=== PATIENT | female | born 1935 | race Caucasian/White ===

== ENCOUNTER 2018-02-13 14:00 | Inpatient (IN) ==
[2018-02-13 15:03] LABS: Appearance,Urine CLEAR; Bacteria,Urine FEW /hpf (0); Bilirubin,Urine NEG (NEG); Color,Urine YELLOW; Glucose,Urine (UA) NEGATIVE (NEG); Leukocyte Esterase,Urine 25 /uL (NEG); Protein,Urine NEG (NEG); Specific Gravity,Urine 1.011 (1.000-1.035); Urine Blood NEG mg/dL (<0.03); Urine Hyaline Cast 1 /lpf (0-2); Urine RBC 2 /hpf (0-1); Urine Squamous Epithelial Cell 2 /hpf (0-4); Urine Transitional Epi Cells < 1 /hpf (0-2); Urine WBC 1 /hpf (0-4); Urobilinogen,Urine NEG (NEG)
[2018-02-13 18:15] LABS: Blood Urea Nitrogen 19 mg/dl (8-23)
[2018-02-13 18:37] LABS: Basophils # (Auto) 0 K/mcL (0.0-0.3); Basophils % (Auto) 0.4 % (0.0-2.0); Eosinophils # (Auto) 0 K/mcL (0.0-0.7); Eosinophils % (Auto) 0.2 % (0.0-7.0); Granulocytes % (Auto) 59.2 % (38.0-78.0); Lymphocytes # (Auto) 2.5 K/mcL (1.5-4.8); Lymphocytes % (Auto) 33.7 % (15.5-49.0); Mean Cell Volume 92.7 fL (80.0-100.0); Mean Corpuscular HGB Conc 32.5 g/dL (31.0-36.0); Mean Corpuscular Hemoglobin 30.2 pg (26.0-34.0); Monocytes # (Auto) 0.5 K/mcL (0.1-0.9); Monocytes % (Auto) 6.5 % (1.0-12.0); Platelet Count 235 K/mcL (140-440); Red Cell Distribution Width 15.5 % (11.5-14.5)
[2018-02-18] MEDS ORDERED: CELECOXIB 200 MG CAPSULE PO SCH (07:00)
[2018-02-18] MEDS ORDERED: ceFAZolin 1 GM VIAL IV SCH (07:00)
[2018-02-18] MEDS ORDERED: PREGABALIN 75 MG CAPSULE PO SCH (07:00)
[2018-02-18] MEDS ORDERED: 0.9 % SODIUM CHLORIDE 9 ML, KETOROLAC 30 MG, ROPIVACAINE HCL/PF 49.5 ML, EPINEPHrine 0.... IJ SCH (07:00)
[2018-02-18 11:56] LABS: Appearance,Urine CLEAR; Bilirubin,Urine NEG (NEG); Color,Urine YELLOW; Glucose,Urine (UA) NEGATIVE (NEG); Leukocyte Esterase,Urine NEG /uL (NEG); Protein,Urine NEG (NEG); Specific Gravity,Urine 1.016 (1.000-1.035); Urine Blood NEG mg/dL (<0.03); Urobilinogen,Urine NEG (NEG)
[2018-02-18] MEDS ORDERED: PHENYLEPHRINE 10 MG/ML VIAL IV ONE (12:25)
[2018-02-18] MEDS ORDERED: ONDANSETRON 4 MG/2 ML VIAL IV ONE (12:25)
[2018-02-18] MEDS ORDERED: TRANEXAMIC ACID 1,000 MG/10 ML VIAL IV ONE ×2 (12:25→13:43)
[2018-02-18] MEDS ORDERED: ePHEDrine 50 MG/ML AMPUL IV ONE (12:25)
[2018-02-18] MEDS ORDERED: DEXAMETHASONE 10 MG/ML VIAL IV ONE (12:25)
[2018-02-18] MEDS ORDERED: MIDAZOLAM 2 MG/2 ML VIAL IV ONE (12:25)
[2018-02-18] MEDS ORDERED: PROPOFOL 200 MG/20 ML VIAL IV ONE (12:25)
[2018-02-18] MEDS ORDERED: LIDOCAINE HCL/PF 100 MG/5 ML SYRINGE IV ONE (12:25)
[2018-02-18] MEDS ORDERED: ROPIVACAINE HCL/PF 20 ML VIAL IJ ONE (12:25)
[2018-02-18] MEDS ORDERED: GENTAMICIN SULFATE 800 MG/20 ML VIAL IR ONE (12:49)
[2018-02-18] MEDS ORDERED: POLYETHYLENE GLYCOL 3350 17 GM PACKET PO PRN (13:43)
[2018-02-18] MEDS ORDERED: BISACODYL 10 MG SUPP.RECT PR PRN (13:43)
[2018-02-18] MEDS ORDERED: ACETAMINOPHEN 325 MG TABLET PO PRN (13:43)
[2018-02-18] MEDS ORDERED: ONDANSETRON ODT 4 MG TABLET SL PRN (13:43)
[2018-02-18] MEDS ORDERED: FLEETS ADULT ENEMA PR PRN (13:43)
[2018-02-18] MEDS ORDERED: BENZOCAINE/MENTHOL 1 LOZENGE PO PRN ×2 (13:43→14:21)
--- NOTE | 2018-02-18 13:43 | Brief Operative Note ---
Date of procedure: 02/18/18 Pre-op diagnosis: left knee oa Post-op diagnosis: same Procedure: left total knee arthroplasty Grafts/Implants: Yes Anesthesia: spinal Complications: none Surgeon: Leobardo Villanueva Trash Collector Truck Driver: Ioana Wynne Estimated blood loss (cc): 150 Tourniquet Time (Minutes): 47 Specimens Removed/Pathology: none sent Condition: stable Disposition: PACU
[2018-02-18] MEDS ORDERED: METHOCARBAMOL 1,000 MG/10 ML VIAL IV PRN (14:21)
[2018-02-18] MEDS ORDERED: IPRATROPIUM/ALBUTEROL 3 ML AMPUL.NEB NEB PRN (14:21)
[2018-02-18] MEDS ORDERED: ACETAMINOPHEN 1,000 MG/100 ML BOTTLE IV ONE (14:21)
[2018-02-18] MEDS ORDERED: NALOXONE HCL 0.4 MG/ML VIAL IV PRN (14:21)
[2018-02-18] MEDS ORDERED: fentaNYL 100 MCG/2 ML VIAL IV PRN (14:21)
[2018-02-18] MEDS ORDERED: LACTATED RINGERS 250 ML IV PRN (14:21)
[2018-02-18] MEDS ORDERED: FLUMAZENIL 0.1 MG/ML ML IV PRN (14:21)
[2018-02-18] MEDS ORDERED: ONDANSETRON 4 MG/2 ML VIAL IV PRN (14:21)
[2018-02-18] MEDS ORDERED: LACTATED RINGERS 1,000 ML IV SCH (14:30)
--- NOTE | 2018-02-18 14:38 | Operative Note ---
DATE OF OPERATION: 02/18/2018 PREOPERATIVE DIAGNOSIS: Degenerative joint disease, left knee. POSTOPERATIVE DIAGNOSIS: Degenerative joint disease, left knee. PROCEDURE: Left total knee arthroplasty. SURGEON: Deborah Villanueva M.D. BURNING PLANT OPERATOR SURGEON: Ioana Wynne PA-C ANESTHESIA: Spinal with LMA assist. ESTIMATED BLOOD LOSS: 150 mL COMPLICATIONS: None noted. SPECIMENS REMOVED: None. DRAINS: None. TOURNIQUET TIME: 47 minutes at 300 mmHg. IMPLANTS: DePuy tibial based fixed bearing size 5 cemented, DePuy Attune femoral posterior stabilized size 6 left narrow, DePuy Attune patella medialized dome 35 mm cemented AOX, DePuy Attune tibial insert fixed bearing posterior stabilized size 6, 8 mm AOX. INDICATIONS: The patient has had a long-standing history of worsening pain in the knee that has failed conservative treatment. Radiographs have confirmed advanced degenerative joint disease. After a long discussion about treatment options, the patient elected to proceed with a knee arthroplasty. The risks and benefits were discussed with the patient in detail including, but not limited to, the risks of anesthesia, problems with the heart or lungs related to anesthesia, infection, compromise or injury to the nerves and blood vessels, deep venous thrombosis, pulmonary embolism, pneumonia, continued pain after surgery, worsening pain or symptoms after surgery, swelling, loss of motion, instability, leg length discrepancy, and need for repeat surgery. DESCRIPTION OF PROCEDURE: The patient was seen in the pre-anesthesia waiting room where all questions were answered and the correct side and site were identified and marked. The patient was transferred to the operating room and administered the anesthetic and given pre-operative antibiotics. A time-out was then called. The extremity was prepped and draped, exsanguinated, and the tourniquet was inflated to 300 mmHg. A midline skin incision was then made with a standard medial parapatellar arthrotomy. Debridement of the menisci, ACL, and PCL was performed followed by balancing releases in the medial lateral plane. We then established intramedullary access to both the femur and tibia in a standard fashion. The femoral guide vanessa was initially placed with the distal femoral guide, pinned into place, and the distal femoral cut was performed and checked with a flat plate. We then turned our attention to the tibia. The intramedullary guide was placed with the proximal tibial cutting block. The block was appropriately positioned off the affected side, varus and valgus was checked with the extra-medullary guide, and the block was pinned into place. The proximal tibial cut was performed and the tibia was prepared for the tibial implant with appropriate rotation. The tibia, femur, and posterior compartment were debrided of osteophytes, loose bodies, and meniscal fragments We then used the gap balancing technique to balance extension with the first two cuts and good balancing was obtained with a 10 millimeter gap block. We turned our attention back to the femur and used the referencing block and implant to size appropriately. Using the gap balancing technique for the flexion space we set our rotation of the femur off the tibial cut. Anesthesia gave the patient 1 gram of Tranexamic Acid via an intravenous route. We placed the 4 in 1 cutting block and made anterior, posterior, and chamfer cuts. Box plasty cuts were then made in a standard fashion for the posterior stabilized prosthesis. We then completed osteophyte release and posterior capsule release from the posterior compartment. Trials were placed and we chose the polyethylene insert thickness that provided the best stability in all planes. With the trials in place, we did a measured resection for a resurfacing patella. We sized the patella and placed the patella trial and performed a lateral facetectomy with the saw and rongeur. Good tracking was obtained. We removed all trials, irrigated and dried all cut surfaces. We cemented the components into place including tibia, femur and patella. We placed a trial liner and held the knee in full extension with the patella compressed while the cement cured. We then removed all excess cement and placed the final polyethylene tibiofemoral component. Irrigation with 3 liters of antibiotic saline was then performed using jet-lavage. We let the tourniquet down and coagulated bleeding vessels. We injected a 100 cubic centimeter volume including Ropivacaine 49.25 cubic centimeters at 5 milligrams per cubic centimeter, Ketorolac 30 milligrams, and Epinephrine 0.5 milligrams into 100 cubic centimeters volume of normal saline. We closed the retinaculum with #2 Stratafix and #0 Vicryl. We closed the subcutaneous tissue and skin in layers out to jae in the skin. A sterile pressure dressing was applied. All needle and sponge counts were correct. The patient was transferred to the recovery room in stable condition. JHONNY:allen Job ID: [id number] Doc ID: [id number] Deborah Villanueva MD
[2018-02-18] MEDS: 0.9 % SODIUM CHLORIDE 10 ML SYRINGE IV SCH ×2 (15:28→23:28)
--- NOTE | 2018-02-18 15:41 | XRay Report ---
CLINICAL INFORMATION: Post-Op Total Knee COMPARISON: Preoperative x-ray 11/15/2017 FINDINGS: Total knee prostheses is anatomically aligned. No osseous abnormality. Soft tissue swelling seen as expected IMPRESSION: Negative Interpreted and Authenticated by: Leobardo Brennan 02/18/18
[2018-02-18] MEDS: 0.9 % SODIUM CHLORIDE 1,000 ML IV SCH (17:48)
[2018-02-18] MEDS: WARFARIN 3 MG TABLET PO SCH (17:48)
[2018-02-18] MEDS: ceFAZolin 1 GM VIAL IV SCH (19:05)
[2018-02-18] MEDS: ACETAMINOPHEN W/CODEINE #3 1 TABLET PO PRN ×3 (19:05→23:27)
[2018-02-18] MEDS ORDERED: ASPIRIN 325 MG ENTERIC COATED TABLET PO SCH (21:00)
[2018-02-18] MEDS: SENNOSIDES 1 TABLET PO SCH (21:03)
[2018-02-18] MEDS: DOCUSATE SODIUM 100 MG CAPSULE PO SCH (21:03)
[2018-02-18] MEDS: LATANOPROST OPHTH DROPS 2.5ML BOTTLE OD SCH (21:05)
[2018-02-18] MEDS: METHOCARBAMOL 750 MG TABLET PO PRN (23:55)
[2018-02-19] MEDS: 0.9 % SODIUM CHLORIDE 1,000 ML IV SCH ×5 (00:32→20:51)
[2018-02-19] MEDS: ACETAMINOPHEN W/CODEINE #3 1 TABLET PO PRN ×5 (03:47→21:36)
[2018-02-19] MEDS: ceFAZolin 1 GM VIAL IV SCH (03:48)
[2018-02-19] MEDS: 0.9 % SODIUM CHLORIDE 10 ML SYRINGE IV SCH ×3 (05:48→21:37)
[2018-02-19] MEDS: BUMETANIDE 1 MG TABLET PO SCH (08:00)
[2018-02-19] MEDS: SPIRONOLACTONE 25 MG TABLET PO SCH (08:01)
[2018-02-19] MEDS: MAGNESIUM OXIDE 400 MG TABLET PO SCH (08:02)
[2018-02-19] MEDS: DOCUSATE SODIUM 100 MG CAPSULE PO SCH ×2 (08:03→20:49)
[2018-02-19] MEDS ORDERED: morphine 15 MG TABLET PO PRN (08:44)
--- NOTE | 2018-02-19 08:44 | Orthopedic Progress Note ---
Subjective Patient information: Note initiated : 02/19/18 at 8:41 am Service Date, if different from initiated Date: [] Patient: Anamkia Carranza 82 y/o F admitted on 02/18/18 for Left Total Knee Arhtroplasty. Chief Complaint: [POD #1 s/p left TKA Doing very well. Cannot take Hydrocodone or Oxycodone but got some IR morphine for break through which helped quite a bit. Ambulating and urinating okay. No CP , SOB, numbness, tingling, calf pain. Wants to go to rehab.] Objective Vital signs: Vital Signs Temp Pulse Pulse Resp BP BP Pulse Ox 02/19/18 08:00 98.2 F 71 14 96/58 95 02/19/18 04:00 97.3 F 71 14 101/65 93 02/19/18 00:00 97.6 F 72 14 94/58 95 02/18/18 22:39 92 02/18/18 20:00 97.4 F 70 16 95/57 92 02/18/18 17:10 67 105/67 97 02/18/18 16:57 70 103/66 99 02/18/18 16:42 70 107/67 96 02/18/18 16:27 70 102/58 99 02/18/18 16:12 70 113/69 97 02/18/18 15:58 70 99/52 97 02/18/18 15:42 70 121/68 96 02/18/18 15:28 70 111/56 98 02/18/18 15:15 70 14 96 02/18/18 15:12 70 112/74 99 02/18/18 15:00 97.0 F 72 13 124/53 98 02/18/18 14:52 71 12 125/54 99 02/18/18 14:37 70 17 124/52 100 02/18/18 14:22 72 16 116/66 100 02/18/18 14:17 71 16 122/67 98 02/18/18 14:12 70 12 118/63 98 02/18/18 14:07 97.7 F 70 12 122/52 99 02/18/18 09:17 97.2 F 70 14 119/71 94 02/18/18 09:00 70 16 94 Intake and Output 02/18/18 02/19/18 02/19/18 21:59 05:59 13:59 Intake Total 2240 / 2240 1600 / 1600 Output Total 500 / 500 925 / 925 Balance 1740 / 1740 675 / 675 Intake: IV 100 / 100 1000 / 1000 Sodium Chloride 0.9% 1,000 ml @ 1000 / 1000 125 mls/hr IV .Q8H [facility] Rx#: [id number] Oral 640 / 640 600 / 600 IV - Manual Only 1500 / 1500 Output: Urine Catheter Amount 450 / 450 Straight 450 / 450 Void Amount 925 / 925 Estimated Blood Loss 50 / 50 Other: Meal Dinner Percent of Meal Consumed 100% Urine Appearance Clear Straight Clear Urine Color Bright Yellow Straight Bright Yellow Urine Odor Normal Straight Normal Weight 161 lb 8 oz Intake & Output: Intake & Output 02/18/18 02/19/18 02/19/18 21:59 05:59 13:59 Intake Total 2240 / 2240 1600 / 1600 Output Total 500 / 500 925 / 925 Balance 1740 / 1740 675 / 675 Weight 161 lb 8 oz Intake: IV 100 / 100 1000 / 1000 Sodium Chloride 0.9% 1,000 ml @ 1000 / 1000 125 mls/hr IV .Q8H [facility] Rx#: [id number] Oral 640 / 640 600 / 600 IV - Manual Only 1500 / 1500 Output: Urine Catheter Amount 450 / 450 Straight 450 / 450 Void Amount 925 / 925 Estimated Blood Loss 50 / 50 Other: Meal Dinner Percent of Meal Consumed 100% Urine Appearance Clear Straight Clear Urine Color Bright Yellow Straight Bright Yellow Urine Odor Normal Straight Normal Incision: Yes healing, No draining, No red, No swollen, No inflamed, Yes clean and dry Incision clean and dry: Yes Dressing: Yes clean, Yes dry, Yes intact Weight bearing status: as tolerated Range of motion: full ankle foot Neurological exam IM: Yes alert, Yes oriented X3, Yes motor sensory intact, Yes neurovascular intact Extremities exam IM: No calf tenderness, Yes normal capillary refill, No Susan' s sign, Yes Foot pink and warm, Yes neurovascular intact - Periperhal Pulses Peripheral pulses: 2+: dorsalis pedis (L), dorsalis pedis (R), posterior tibialis (L), posterior tibialis (R) - Labs CBC & BMP: 02/19/18 04:30 02/13/18 13:43 Labs: Orthopedic Labs 02/18/18 02/13/18 09:40 13:43 POC PT 11.3 L PT 21.5 H POC INR 0.9 INR 1.8 H 02/19/18 02/13/18 04:30 13:43 Hgb 12.7 15.4 H Hct 38.1 47.3 Assessment and Plan (1) Knee osteoarthritis POD #1 s/p left TKA: -d/c planning to [facility] on Saturday -pain control: Tylenol #3 Q 4-6 prn pain, Morphine 15mg IR for breakthrough prn -ASA 325mg BID x 4 weeks for DVT prophylaxis -PT Status: Acute
[2018-02-19] MEDS ORDERED: NON FORMULARY MEDICATION 1 DOSE MISCELL (Biotin 10,000 MCG) SUBLINGUAL SCH (09:00)
[2018-02-19] MEDS: DICLOFENAC SODIUM 2.5 ML DROPS OP SCH ×2 (09:22→20:50)
[2018-02-19] MEDS: morphine 15 MG TABLET PO PRN ×3 (09:55→20:04)
[2018-02-19] MEDS: WARFARIN 4 MG TABLET PO SCH (13:08)
[2018-02-19] MEDS: METHOCARBAMOL 750 MG TABLET PO PRN (16:32)
[2018-02-19] MEDS: SENNOSIDES 1 TABLET PO SCH (20:49)
[2018-02-19] MEDS: LATANOPROST OPHTH DROPS 2.5ML BOTTLE OD SCH (20:49)
[2018-02-20] MEDS: METHOCARBAMOL 750 MG TABLET PO PRN (00:09)
[2018-02-20] MEDS: morphine 15 MG TABLET PO PRN ×2 (00:09→04:22)
[2018-02-20] MEDS: ACETAMINOPHEN W/CODEINE #3 1 TABLET PO PRN ×2 (01:50→05:58)
[2018-02-20] MEDS: 0.9 % SODIUM CHLORIDE 1,000 ML IV SCH ×3 (05:27→21:57)
[2018-02-20] MEDS: 0.9 % SODIUM CHLORIDE 10 ML SYRINGE IV SCH ×3 (05:59→22:06)
--- NOTE | 2018-02-20 07:03 | Orthopedic Progress Note ---
Subjective Patient information: Note initiated : 02/20/18 at 7:02 am Service Date, if different from initiated Date: [] Patient: Anamika Carranza 82 y/o F admitted on 02/18/18 for Left Total Knee Arhtroplasty. Chief Complaint: [] Interval history: nauseated this am. not feeling as well Objective Vital signs: Vital Signs Temp Pulse Resp BP Pulse Ox 02/20/18 04:00 97.9 F 75 14 101/59 94 02/20/18 00:00 97.5 F 71 14 100/62 95 02/19/18 20:00 97.4 F 71 16 113/72 92 02/19/18 16:00 98.8 F 69 14 104/69 94 02/19/18 15:00 75 02/19/18 12:00 98.3 F 75 14 99/61 95 02/19/18 11:00 71 02/19/18 08:00 98.2 F 71 14 96/58 95 Intake and Output 02/19/18 02/20/18 02/20/18 21:59 05:59 13:59 Intake Total 800 / 800 1200 / 1200 Output Total 850 / 850 Balance 800 / 800 350 / 350 Intake: Oral 800 / 800 1200 / 1200 Output: Void Amount 850 / 850 Other: Urine Appearance Clear Urine Color Dark Yellow Weight 165 lb Intake & Output: Intake & Output 02/19/18 02/20/18 02/20/18 21:59 05:59 13:59 Intake Total 800 / 800 1200 / 1200 Output Total 850 / 850 Balance 800 / 800 350 / 350 Weight 165 lb Intake: Oral 800 / 800 1200 / 1200 Output: Void Amount 850 / 850 Other: Urine Appearance Clear Urine Color Dark Yellow Incision: Yes healing Incision clean and dry: Yes Dressing: Yes clean, Yes dry, Yes intact Weight bearing status: full Neurological exam IM: Yes abnormal gait, Yes alert, Yes oriented X3, Yes motor sensory intact, Yes neurovascular intact Extremities exam IM: No calf tenderness, Yes Foot pink and warm, Yes neurovascular intact - Labs CBC & BMP: 02/20/18 04:12 02/13/18 13:43 Labs: Orthopedic Labs 02/18/18 02/13/18 09:40 13:43 POC PT 11.3 L PT 21.5 H POC INR 0.9 INR 1.8 H 02/20/18 02/19/18 02/13/18 04:12 04:30 13:43 Hgb 11.4 L 12.7 15.4 H Hct 34.3 L 38.1 47.3 Assessment and Plan (1) Knee osteoarthritis pod 2 s/p tka wbat pain control nausea control dvt prophylaxis d/c planning -rehab tomorrow if stable Status: Acute
--- NOTE | 2018-02-20 07:05 | Discharge Summary ---
Ortho Discharge - TKA - Patient Instructions Diet: Regular Diet Activity: activity as tolerated, weight bearing as tolerated Total Knee Protocol: For Total Knee: Start ROM BREEZY with stationary bike or rocking chair. Work on gaining full extension of knee. Posterior dislocation precautions provided. Hip abductor strengthening and gait training instructions provided. Apply Cryocuff as instructed. Dressing Care: Other (keep dermabond covered, do not remove) - Problem Maintenance (1) Knee osteoarthritis Status: Acute - Follow Up Plan Follow Up Appointments: Ioana Wynne PA-C [Physician Judo Instructor] - 03/05/18 1:40 pm Disposition: Xfer SNF Prognosis: Good Rehab Potential: Good I certify that the patient requires SNF services: Yes Overall status at discharge: patient is progressing back to baseline
[2018-02-20] MEDS: ONDANSETRON 4 MG/2 ML VIAL IV PRN ×2 (07:11→10:48)
[2018-02-20] MEDS: DOCUSATE SODIUM 100 MG CAPSULE PO SCH ×2 (10:07→21:05)
[2018-02-20] MEDS: MAGNESIUM OXIDE 400 MG TABLET PO SCH (10:07)
[2018-02-20] MEDS: BUMETANIDE 1 MG TABLET PO SCH (10:07)
[2018-02-20] MEDS: SPIRONOLACTONE 25 MG TABLET PO SCH (10:07)
[2018-02-20] MEDS: DICLOFENAC SODIUM 2.5 ML DROPS OP SCH (10:12)
[2018-02-20] MEDS: WARFARIN 3 MG TABLET PO SCH (14:24)
[2018-02-20] MEDS: SENNOSIDES 1 TABLET PO SCH (21:05)
[2018-02-20] MEDS: traMADol 50 MG TABLET PO PRN ×2 (21:05→23:37)
[2018-02-20] MEDS: LATANOPROST OPHTH DROPS 2.5ML BOTTLE OD SCH (21:56)
[2018-02-21] MEDS: traMADol 50 MG TABLET PO PRN (03:08)
[2018-02-21] MEDS: 0.9 % SODIUM CHLORIDE 10 ML SYRINGE IV SCH ×3 (06:08→20:19)
[2018-02-21] MEDS: 0.9 % SODIUM CHLORIDE 1,000 ML IV SCH (06:08)
--- NOTE | 2018-02-21 07:01 | Orthopedic Progress Note ---
Subjective Patient information: Note initiated : 02/21/18 at 6:54 am Service Date, if different from initiated Date: [] Patient: Anamika Carranza 82 y/o F admitted on 02/18/18 for Left Total Knee Arhtroplasty. Chief Complaint: [POD #3 s/p left TKA Patient very sleepy and has been for 2 days now. Yesterday at Dr. Villanueva's bedside visit, the patient was vomiting quite significantly. IV fluids were restarted however according to nursing only 400ml were given because the patient wasn't improving. She was given half of her diuretics. Her pain levels have been low. She was being given Morphine for immediate breakthrough, those were stopped as she was very sleepy. This morning she states she's been short of breath. She does not usually take supplemental oxygen at home but is requiring 2L nasal canula this morning. If she removes the oxygen, she desats quickly. She has been using her CPAP nightly. She denies chest pain, calf pain, numbness, tingling, continued vomiting, nausea. She does report shortness of breath. She also has a cardiac history including pacemaker placement and atrial fibrillation. No known history of DVT or PE. ] Objective Vital signs: Vital Signs Temp Pulse Resp BP Pulse Ox 02/21/18 04:00 97.6 F 73 15 114/70 98 02/20/18 23:49 97.7 F 72 14 132/73 94 02/20/18 20:00 98 02/20/18 19:44 98.1 F 72 20 120/75 94 02/20/18 16:00 98.0 F 85 17 129/72 95 02/20/18 11:54 98.2 F 89 16 121/65 98 02/20/18 07:37 98.6 F 69 14 104/70 90 Intake and Output 02/20/18 02/21/18 02/21/18 21:59 05:59 13:59 Intake Total 490 / 490 450 / 450 Output Total 2475 / 2475 1400 / 1400 Balance -1984 / -1984 -950 / -950 Intake: Oral 90 / 90 450 / 450 IV - Manual Only 400 / 400 Output: Void Amount 2475 / 2475 1400 / 1400 Other: Meal Dinner Percent of Meal Consumed 25% Feeding Ability Assist with Tray Set Up Urine Appearance Clear Urine Color Dark Yellow # Voids 1 Weight 172 lb Intake & Output: Intake & Output 02/20/18 02/21/18 02/21/18 21:59 05:59 13:59 Intake Total 490 / 490 450 / 450 Output Total 2475 / 2475 1400 / 1400 Balance -1984 / -1984 -950 / -950 Weight 172 lb Intake: Oral 90 / 90 450 / 450 IV - Manual Only 400 / 400 Output: Void Amount 2475 / 2475 1400 / 1400 Other: Meal Dinner Percent of Meal Consumed 25% Feeding Ability Assist with Tray Set Up Urine Appearance Clear Urine Color Dark Yellow # Voids 1 Incision: Yes healing, No draining, No red, No swollen, No inflamed, Yes clean and dry Incision clean and dry: Yes Dressing: Yes clean, Yes dry, Yes intact Weight bearing status: as tolerated Neurological exam IM: Yes alert, Yes oriented X3, Yes motor sensory intact, Yes neurovascular intact Extremities exam IM: No calf tenderness, Yes normal capillary refill, Yes normal inspection, No Susan's sign, Yes Foot pink and warm, Yes neurovascular intact - Periperhal Pulses Peripheral pulses: 2+: dorsalis pedis (L), dorsalis pedis (R), posterior tibialis (L), posterior tibialis (R) - Labs CBC & BMP: 02/21/18 04:15 02/13/18 13:43 Labs: Orthopedic Labs 02/18/18 02/13/18 09:40 13:43 POC PT 11.3 L PT 21.5 H POC INR 0.9 INR 1.8 H 02/21/18 02/20/18 02/19/18 04:15 04:12 04:30 Hgb 11.4 L 11.4 L 12.7 Hct 33.3 L 34.3 L 38.1 02/13/18 13:43 Hgb 15.4 H Hct 47.3 Assessment and Plan (1) Knee osteoarthritis POD #3 s/p left TKA: -hospitalist consult: I spoke with Dr. Pardo over the phone this morning to further evaluate her saturation and oxygen concerns. He requested an inpatient panel and CXR which were both ordered. Will await his recommendation -d/c planning to [facility] when cleared by hospitalist -pain control: Tramadol 50mg 1-2 tabs PO Q 4-6 hrs prn pain. D/C morphine, will add to respiratory depression -ASA 325mg BID x 4 weeks for DVT prophylaxis -PT -WBAT -encourage ambulation and incentive spirometry this morning Status: Acute
--- NOTE | 2018-02-21 07:59 | XRay Report ---
CLINICAL INFORMATION: Shortness of breath COMPARISON: 08/06/2017 FINDINGS: Moderate cardiomegaly is unchanged. Pacer and leads in stable satisfactory position. Mediastinum and pulmonary vessels are normal. Mild chronic bronchitis changes are stable - no infiltrates or effusions IMPRESSION: Moderate cardiomegaly and chronic bronchitis - stable. No acute disease Interpreted and Authenticated by: Leobardo Brennan 02/21/18
[2018-02-21 08:43] LABS: Mean Cell Volume 93.3 fL (80.0-100.0); Mean Corpuscular HGB Conc 33.4 g/dL (31.0-36.0); Mean Corpuscular Hemoglobin 31.2 pg (26.0-34.0); Platelet Count 167 K/mcL (140-440); RBC 3.77 M/mcL (4.00-5.20); Red Cell Distribution Width 15.3 % (11.5-14.5)
[2018-02-21 09:14] LABS: ALT/SGPT 26 U/l (0-40); Albumin 3.2 gm/dL (3.2-5.2); Albumin/Globulin Ratio 1.1 (1.0-2.3); Alkaline Phosphatase 56 U/L (39-117); Bilirubin,Direct < 0.2 mg/dL (0.0-0.3); Blood Urea Nitrogen 9 mg/dl (8-23); Gamma Glutamyl Transpeptidase 28 U/L (5-36); Uric Acid 5.4 mg/dL (2.5-8.0)
[2018-02-21] MEDS ORDERED: POTASSIUM CHLORIDE 40 MEQ in DEXTROSE 5% IN WATER 500 ML IV ONE ×2 (09:26→13:45)
[2018-02-21] MEDS ORDERED: POTASSIUM CHLORIDE 20 MEQ PACKET PO ONE (09:26)
[2018-02-21 09:27] LABS: Anisocytosis 1+ (NONE SEEN); Band Neutrophils % 2 % (0-10); Hypochromasia 1+ (NONE SEEN); Lymphocytes % 14 % (15-49); Monocytes % (Manual) 4 % (1-12); Platelet Estimate NORMAL (NORMAL); RBC Morphology ABNORM (NORMAL); Segmented Neutrophils % 80 % (38-78); Toxic Granulation 1+ (NONE SEEN)
--- NOTE | 2018-02-21 10:48 | XRay Report ---
CLINICAL INFORMATION: constipation/nauseas vomiting COMPARISON: None. FINDINGS: There is moderate stool within the right and proximal transverse colonic segments. Stomach, small and large bowel show minimal symmetric dilatation compatible with mild ileus. No evidence of bowel obstruction. No free air, soft tissue mass or organomegaly. No pathologic calcification. Fusion changes lower lumbar spine noted IMPRESSION: Mild ileus Interpreted and Authenticated by: Leobardo Brennan 02/21/18
[2018-02-21] MEDS ORDERED: METHYLNALTREXONE BROMIDE 12 MG/0.6 ML VIAL SC ONE (11:15)
[2018-02-21] MEDS: ACETAMINOPHEN 500 MG TABLET PO SCH ×3 (11:23→20:14)
[2018-02-21] MEDS: DICLOFENAC SODIUM 2.5 ML DROPS OP SCH (11:24)
[2018-02-21] MEDS: SPIRONOLACTONE 25 MG TABLET PO SCH (11:24)
[2018-02-21] MEDS: MAGNESIUM OXIDE 400 MG TABLET PO SCH (11:24)
[2018-02-21] MEDS: DOCUSATE SODIUM 100 MG CAPSULE PO SCH ×2 (11:24→20:14)
[2018-02-21] MEDS: BUMETANIDE 1 MG TABLET PO SCH ×2 (11:26→11:44)
[2018-02-21] MEDS: SENNOSIDES/DOCUSATE SODIUM 1 TAB TABLET PO SCH ×2 (12:33→20:14)
[2018-02-21] MEDS ORDERED: CALCIUM CARBONATE 500 MG TAB.CHEW CHEWED PRN (13:40)
[2018-02-21] MEDS: WARFARIN 4 MG TABLET PO SCH (13:57)
[2018-02-21] MEDS ORDERED: IOPAMIDOL 100 ML BOTTLE IV ONE (14:20)
[2018-02-21] MEDS ORDERED: FLEETS ADULT ENEMA PR ONE (14:49)
--- NOTE | 2018-02-21 14:49 | Internal Medicine Consult Note ---
Medical - CN: HPI - Data of Consult Patient: new to practice Consult date: 02/21/18 Requesting Physician: Leobardo Villanueva Primary Care Provider: Kimani Norwood Family Provider: Tanya Naidu - Consult Narrative Reason for consult: Altered mental status, Hypoxia. History of present illness: Ms. Carranza is a 82 year old F who was admitted to the ortho service for elective TKA, this surgery was done on the , no acute complications reported, On post op day 1 the patient was reportedly doing well, she developed nause and vomiting yesterday, and today has been noted to be very drowsy and having increased oxygen needs. Medicine is consulted for further management On my eval, the patient and her daughter provided most of history THe patient was in the bed, had no acute complaints, she notes 3-4 episodes of vomiting, but no episodes this AM, she notes that she has not had any other major complaints, knee pain is ok as long as she is not moving. She notes she has a history of not doing well postoperatively especially when she gets narcotic pain medications. The patient has been getting tramadol Tylenol 3 and some morphine postoperatively in low doses. The patient denies any chest pain cough or shortness of breath, had one episode of headache yesterday but no changes in vision no difficulty in swallowing she has no urinary complaints. The patient notes that she has not had a bowel movement for the last 4 days and is not really passing much gas either. She has a lot of burping. She still feels drowsy but seems to be more awake according to the daughter. 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) Osteoarthrosis (Chronic) Hematuria, microscopic (Chronic) Glaucoma (Chronic) History of total right knee replacement (Chronic) Edema (Chronic) PMR (polymyalgia rheumatica) (Chronic) Kidney stones (Chronic) Acid reflux (Chronic) atrial septal defect, Surgical history: Past Surgical History (Last Reviewed 02/12/18 @ 15:18 by Rosita Pineda RN) H/O cardiac pacemaker (Chronic) History of cholecystectomy (Chronic) History of back surgery (Chronic) H/O bladder repair surgery (Chronic) H/O: hysterectomy (Chronic) History of appendectomy (Chronic) History of cataract surgery (Chronic) History of laparoscopy (Chronic) Family history: reviewed and not pertinent Medical - CN: Meds Home Medications Medication Instructions Recorded Confirmed Type diclofenac 0.1 % eye drops 1 drp OD HS ml 10/07/15 02/19/18 History biotin 5,000 mcg sublingual tablet 10,000 mcg SUBLINGUAL QDAY 08/12/17 02/18/18 History spironolactone 50 mg tablet 50 mg PO DAILY #90 tab 12/23/17 02/18/18 Rx cholecalciferol (vitamin D3) 1,000 1,000 unit PO QDAY #1 cap 02/10/18 02/18/18 Rx unit capsule Bumetanide 5 mg PO QDAY 02/13/18 02/18/18 History Latanoprost Ophth Drops [Xalatan 1 gtt OD HS 02/13/18 02/18/18 History Ophth Drops] Magnesium Oxide 400 mg PO DAILY 02/13/18 02/18/18 History Multivit,Ther Iron,Ca,FA & Min 1 tab PO DAILY 02/13/18 02/18/18 History [Multivitamin W/Minerals] Multivit-Min/Iron/Folic/Kij215 2 tab PO DAILY 02/13/18 02/18/18 History [Hair, Skin and Nails Tablet] Ubidecarenone [Coq-10] 100 mg PO DAILY 02/13/18 02/18/18 History Warfarin [Coumadin] 4 mg PO Q48H 02/13/18 02/18/18 History Warfarin [Coumadin] 6 mg PO Q48H 02/13/18 02/18/18 History Acetaminophen W/Codeine #3 1 - 2 tab PO Q4HP PRN #60 tab 02/20/18 Rx [Tylenol #3] Aspirin [Ecotrin] 325 mg PO BID #60 tab.ec 02/20/18 Rx morphine 15 mg PO Q4-6HP PRN #30 tab 02/20/18 Rx traMADol [Ultram] 50 - 100 mg PO Q4-6HP PRN #60 tab 02/21/18 Rx Allergies Allergy/AdvReac Type Severity Reaction Status Date / Time peanut [PEANUT] Allergy Intermediate SOB Verified 02/13/18 14:15 Penicillins [PENICILLINS] Allergy Mild Hives Verified 02/13/18 14:15 Sulfa (Sulfonamide Allergy Mild Hives Verified 02/13/18 14:15 Antibiotics) [SULFA (SULFONAMIDE ANTIBIOTICS)] azithromycin AdvReac Mild SOB Verified 02/13/18 14:13 Beta-Adrenergic Agents AdvReac Mild Shakiness Verified 02/13/18 14:15 Beta-Blockers AdvReac Mild Shakiness Verified 02/13/18 14:13 (Beta-Adrenergic Bloc hydrocodone AdvReac Mild Hallucinati Verified 02/13/18 14:13 ng nitrofurantoin AdvReac Mild Hallucinations, Verified 02/13/18 14:14 [From Macrobid] night sweats Oxycodone [OXYCODONE] AdvReac Mild HALLUCINATI Verified 02/13/18 14:15 ONS Medical - CN: Exam - Constitutional Vitals: Temp Pulse Resp BP Pulse Ox 97.8 F 73 14 115/62 98 02/21/18 10:59 02/21/18 04:00 02/21/18 10:59 02/21/18 10:59 02/21/18 10:59 Exam: GENERAL: The patient is a well-developed, well-nourished in no apparent distress. Is alert and oriented x3. VITAL SIGNS: Reviewed and as noted elsewhere. HEENT: Head is normocephalic and atraumatic. Extraocular muscles are intact. Pupils are equal, round, and reactive to light. Nares appeared normal. Mouth appears any without lesions. Mucous membranes are dry. NECK: Normal to inspection, Supple, No lymphadenopathy or thyromegaly. LUNGS: Air entry equal on both sides, no wheezing, crackles or rhonchi noted. No accessory muscles of respiration HEART: Regular rate and rhythm irregular, S1 and S2 heard, no Gallop, S3 or Rub Noted, systolic murur, mitral region. ABDOMEN: Soft, tender in the epigastric and right and left upper quadrants. hypoactive bowel sounds. No hepatosplenomegaly was noted. EXTREMITIES: No cyanosis, clubbing, rash, lesions or edema. NEUROLOGIC: Cranial nerves II through XII are grossly intact. Motor and Sensory System Grossly Intact PSYCHIATRIC: Normal affect, Normal Mood. Appropriate Behavior. SKIN: No ulceration or wounds noted, No jaundice, No rash noted. Medical - CN: Result - Labs CBC & Chem 7: 02/21/18 08:13 02/21/18 08:13 Labs: Short CBC 02/21/18 02/21/18 Range/Units 04:15 08:13 WBC 8.5 (4.5-11.0) K/mcL Hgb 11.4 L 11.8 L (12.0-15.0) g/dL Hct 33.3 L 35.2 L (36.0-48.0) % Plt Count 167 (140-440) K/mcL BMP 02/21/18 08:13 Sodium 132 L Potassium 2.9 L* Chloride 88 L Carbon Dioxide 33 H BUN 9 Creatinine 0.6 Glucose 145 H Calcium 8.7 Liver Function 02/21/18 Range/Units 08:13 Total Bilirubin 0.6 (0.0-1.0) mg/dL Direct Bilirubin < 0.2 (0.0-0.3) mg/dL GGT 28 (5-36) U/L AST 30 (0-37) U/l ALT 26 (0-40) U/l Alkaline Phosphatase 56 (39-117) U/L Albumin 3.2 (3.2-5.2) gm/dL Medical - CN: A/P (1) Acute respiratory failure with hypoxia Status: Acute Assessment and plan: Etiology? CXR is neg for chf, has chr bronchitis, pt has no wheezing, moving air well D dmier is elevated at 0.89, CTA ordered results pending. she is already on coumadin, but was on subtherapeutic INR periop. (2) Ileus, postoperative Status: Acute Assessment and plan: due to narcotic pain meds also low K contributing hold all narcotics, replace K give one dose of relistor, fleets enema, (3) Nausea & vomiting Status: Acute Assessment and plan: due to opiates, reaction to meds IV zofran prn start on po omeprazole. (4) DIANE (obstructive sleep apnea) Status: Acute Assessment and plan: on cpap, not working, well they note they need a replacement. (5) Atrial fibrillation Problem details: 2008 pacemaker Status: Chronic Assessment and plan: stable HR, on oral anticoagulation with coumadin continue same. (6) PFO (patent foramen ovale) Status: Acute Assessment and plan: noted on echo 2016 wtih left to right shunt. if patient shows e/o chf, will repeat Echo. has elevated bnp, but cxr had no obvious fluid overload. (7) Hypertension, essential Problem details: 1975 Status: Chronic Assessment and plan: BP stable pt is on bumex and aldaconte, as home medication will continue same dose of bumex is 1mg but pt had reported she takes 5mg and therefore got a 5mg dose yesterday. I am not sure what adverse Hypokalemia likely secondary to same changes in electrolytes acutely with supratherapeutic doses may have also contributed to pts symptoms, monitor for now, resume home does of bumex and aldactone. Social History - Tobacco smoking status: Former smoker - Quit Details quit date: 05/15/55 pack-years: 3 - Alcohol alcohol intake frequency: holiday/special occasion only - Substance use substance use type: does not use
--- NOTE | 2018-02-21 15:20 | Cat Scan Report ---
CLINICAL INFORMATION: Chest pain evaluate for pulmonary embolus COMPARISON: 10/31/[address] TECHNIQUE: 80 cc of Isovue-300 were injected intravenously. Using SmartPrep to maximize pulmonary artery opacification, 2.5 mm helical slices were obtained from the lung apices through the lung bases. Following reconstruction, 2.5 mm sagittal, coronal, and axial reformations were processed. The exam was reviewed at mediastinal, lung, and bone windows. The exam was performed using radiation dose optimization techniques including, but not limited to, automated exposure control, adjustment of the mA and/or kV according to patient size and use of iterative reconstruction technique. FINDINGS: The pulmonary arteries are normal in contour and caliber well opacified - no evidence of embolus. Thoracic aorta is also normal in contour and caliber. The heart is mildly enlarged. Dual-chamber pacemaker leads in satisfactory stable position. Moderate calcification seen aortic and mitral valves. There is no adenopathy in the mediastinal hilar or axillary region. Esophagus is normal. Lungs volumes are mildly elevated and there is slight dilatation/wall thickening of the bronchi compatible with chronic bronchitis - it is unchanged. Focal pleural-based fibrosis in the posterior segment right upper lobe is slightly more prominent on the previous study. There is wispy fibrosis or, less likely, atelectasis in the superior segment right lower lobe, right middle lobe and scattered throughout both lower lobes. This has increased from previous study. There are no diffuse or regional infiltrates and no nodules. No effusions. Bones and soft tissues of the chest wall are normal Images through the abdomen show no abnormality in the visualized liver and spleen IMPRESSION: 1. Pulmonary arteries are unremarkable - no evidence of pulmonary embolus 2. Mild chronic bronchitis or asthma. Scattered scarring in the posterior segment right upper lobe, right middle lobe and both lower lobes is more prominent than on the comparison study over two years ago. No jagdeep infiltrates or nodules, however Interpreted and Authenticated by: Leobardo Brennan 02/21/18
[2018-02-21] MEDS: OMEPRAZOLE 20 MG CAPSULE PO SCH (16:25)
[2018-02-21] MEDS: IPRATROPIUM/ALBUTEROL 3 ML AMPUL.NEB NEB SCH (18:37)
[2018-02-21] MEDS: SENNOSIDES 1 TABLET PO SCH (20:14)
[2018-02-21] MEDS: LATANOPROST OPHTH DROPS 2.5ML BOTTLE OD SCH (20:14)
[2018-02-22] MEDS: IPRATROPIUM/ALBUTEROL 3 ML AMPUL.NEB NEB SCH ×6 (00:04→23:25)
[2018-02-22] MEDS: 0.9 % SODIUM CHLORIDE 10 ML SYRINGE IV SCH ×3 (05:54→23:48)
[2018-02-22 06:23] LABS: Basophils # (Auto) 0 K/mcL (0.0-0.3); Basophils % (Auto) 0.4 % (0.0-2.0); Eosinophils # (Auto) 0 K/mcL (0.0-0.7); Eosinophils % (Auto) 0.1 % (0.0-7.0); Granulocytes % (Auto) 68.8 % (38.0-78.0); Lymphocytes # (Auto) 1.5 K/mcL (1.5-4.8); Lymphocytes % (Auto) 19.2 % (15.5-49.0); Mean Cell Volume 93.8 fL (80.0-100.0); Mean Corpuscular HGB Conc 33.5 g/dL (31.0-36.0); Mean Corpuscular Hemoglobin 31.4 pg (26.0-34.0); Monocytes # (Auto) 0.9 K/mcL (0.1-0.9); Monocytes % (Auto) 11.5 % (1.0-12.0); Platelet Count 166 K/mcL (140-440); RBC 3.56 M/mcL (4.00-5.20); Red Cell Distribution Width 14.8 % (11.5-14.5)
[2018-02-22] MEDS: OMEPRAZOLE 20 MG CAPSULE PO SCH ×2 (06:55→16:17)
[2018-02-22] MEDS: MAGNESIUM HYDROXIDE 30 ML ORAL.SUSP PO PRN ×2 (06:55→16:17)
[2018-02-22 07:07] LABS: ALT/SGPT 33 U/l (0-40); Albumin 3.1 gm/dL (3.2-5.2); Albumin/Globulin Ratio 1.1 (1.0-2.3); Alkaline Phosphatase 85 U/L (39-117); Bilirubin,Direct < 0.2 mg/dL (0.0-0.3); Blood Urea Nitrogen 8 mg/dl (8-23); Gamma Glutamyl Transpeptidase 36 U/L (5-36); Uric Acid 5.2 mg/dL (2.5-8.0)
[2018-02-22] MEDS: SENNOSIDES/DOCUSATE SODIUM 1 TAB TABLET PO SCH ×2 (08:27→20:57)
[2018-02-22] MEDS: BUMETANIDE 1 MG TABLET PO SCH (08:27)
[2018-02-22] MEDS: MAGNESIUM OXIDE 400 MG TABLET PO SCH (08:27)
[2018-02-22] MEDS: SPIRONOLACTONE 25 MG TABLET PO SCH (08:27)
[2018-02-22] MEDS: DOCUSATE SODIUM 100 MG CAPSULE PO SCH ×2 (08:27→20:57)
[2018-02-22] MEDS: ACETAMINOPHEN 500 MG TABLET PO SCH ×3 (08:28→20:54)
[2018-02-22] MEDS: DICLOFENAC SODIUM 2.5 ML DROPS OP SCH (08:28)
--- NOTE | 2018-02-22 09:10 | Orthopedic Progress Note ---
Subjective Patient information: Note initiated : 02/22/18 at 9:08 am Service Date, if different from initiated Date: [] Patient: Anamika Carranza 82 y/o F admitted on 02/18/18 for Left Total Knee Arhtroplasty. Chief Complaint: [POD #4 s/p left TKA Doing better. Still on supplemental oxygen. Feeling less short of breath. Denies chest pain, numbness, tingling. ] Objective Vital signs: Vital Signs Temp Pulse Pulse Resp BP Pulse Ox 02/22/18 07:27 71 16 96 02/22/18 06:44 97.6 F 20 123/70 96 02/22/18 06:00 97 02/22/18 03:40 97.2 F 71 16 123/65 93 02/22/18 00:15 99 02/22/18 00:00 97.2 F 72 16 109/66 95 02/21/18 19:57 97.4 F 70 18 122/72 97 02/21/18 19:00 78 15 98 02/21/18 18:38 78 15 02/21/18 16:00 97.6 F 16 133/76 98 02/21/18 10:59 97.8 F 14 115/62 98 Intake and Output 02/21/18 02/22/18 02/22/18 21:59 05:59 13:59 Intake Total 1320 / 1320 800 / 800 Output Total 800 / 800 600 / 600 125 / 125 Balance 520 / 520 200 / 200 -125 / -125 Intake: IV 520 / 520 Oral 800 / 800 800 / 800 Output: Void Amount 800 / 800 600 / 600 125 / 125 Other: Meal Breakfast Percent of Meal Consumed 100% Urine Appearance Clear Clear Clear Urine Color Dark Yellow Bright Yellow Pale Urine Odor Normal Normal Normal # Voids 1 Weight 169 lb Intake & Output: Intake & Output 02/21/18 02/22/18 02/22/18 21:59 05:59 13:59 Intake Total 1320 / 1320 800 / 800 Output Total 800 / 800 600 / 600 125 / 125 Balance 520 / 520 200 / 200 -125 / -125 Weight 169 lb Intake: IV 520 / 520 Oral 800 / 800 800 / 800 Output: Void Amount 800 / 800 600 / 600 125 / 125 Other: Meal Breakfast Percent of Meal Consumed 100% Urine Appearance Clear Clear Clear Urine Color Dark Yellow Bright Yellow Pale Urine Odor Normal Normal Normal # Voids 1 Incision: Yes healing, No draining, Yes red, No swollen, No inflamed, Yes clean and dry Incision clean and dry: Yes Dressing: Yes clean, Yes dry, Yes intact Weight bearing status: as tolerated Neurological exam IM: Yes alert, Yes oriented X3, Yes motor sensory intact, Yes neurovascular intact Extremities exam IM: No calf tenderness, Yes normal capillary refill, Yes normal inspection, Yes Foot pink and warm, Yes neurovascular intact - Periperhal Pulses Peripheral pulses: 2+: dorsalis pedis (L), dorsalis pedis (R), posterior tibialis (L), posterior tibialis (R) - Labs CBC & BMP: 02/22/18 04:00 02/22/18 04:00 Labs: Orthopedic Labs 02/21/18 02/21/18 02/18/18 08:07 08:07 09:40 POC PT 11.3 L PT 16.7 H POC INR 0.9 INR 1.3 H D-Dimer 0.98 H 02/13/18 13:43 POC PT PT 21.5 H POC INR INR 1.8 H D-Dimer 02/22/18 02/21/18 02/21/18 04:00 08:13 04:15 Hgb 11.2 L 11.8 L 11.4 L Hct 33.4 L 35.2 L 33.3 L 02/20/18 02/19/18 02/13/18 04:12 04:30 13:43 Hgb 11.4 L 12.7 15.4 H Hct 34.3 L 38.1 47.3 Assessment and Plan (1) Knee osteoarthritis POD #4 s/p left TKA: -hospitalist consult: I spoke to Dr. Pardo this morning. The issue was the narcotic ileus and the incorrect Bumex dose. He states that she is cleared for d /c today. -d/c planning to [facility] today -pain control: Tramadol 50mg 1-2 tabs PO Q 4-6 hrs prn pain. D/C morphine, will add to respiratory depression -ASA 325mg BID x 4 weeks for DVT prophylaxis -PT -WBAT -encourage ambulation and incentive spirometry this morning Status: Acute
--- NOTE | 2018-02-22 10:07 | XRay Report ---
CLINICAL INFORMATION: ileus COMPARISON: 02/21/2018 FINDINGS: The small and large bowel show mild symmetric dilatation compatible with mild ileus. Bowel caliber has decreased, however, from yesterday implying improvement. There is no free air, soft tissue mass or organomegaly. Few benign calcified granulomas right midabdomen seen as before IMPRESSION: Mild ileus - improving Interpreted and Authenticated by: Leobardo Brennan 02/22/18
[2018-02-22] MEDS ORDERED: ENOXAPARIN 40 MG/0.4 ML SYRINGE SQ ONE (10:33)
--- NOTE | 2018-02-22 10:42 | Discharge Summary ---
Medical - DS: Prov Patient information: Note initiated : 02/22/18 at 10:34 am Service Date, if different from initiated Date: [] Patient: Anamika Carranza 82 y/o F admitted on 02/18/18 for Left Total Knee Arhtroplasty. Chief Complaint: [] Date of admission: 02/18/18 08:10 Discharge date: 02/22/18 Primary care physician: Kimani Norwood Consults: 02/21/18 07:04 Consult to Physician [CONS] Routine Comment: Consulting Provider: Mary Pardo Reason For Exam: Physician to Consult Discharging clinician: Mary Pardo Medical - DS: Meds - Discharge Medications Prescriptions: Bumetanide 1 mg PO QDAY #30 tab Enoxaparin [Lovenox] 40 mg SQ DAILY #7 syringe traMADol HCL [Ultram] 25 mg PO Q4HP PRN #30 tab PRN Reason: Pain Active and Home Medications: Home Medications diclofenac 0.1 % eye drops 1 drp OD HS ml 10/07/15 [History Confirmed 02/19/18 Last Taken 02/17/18 21:00] biotin 5,000 mcg sublingual tablet 10,000 mcg SUBLINGUAL QDAY 08/12/17 [History Confirmed 02/18/18 Last Taken 02/17/18 09:00] spironolactone 50 mg tablet 50 mg PO DAILY #90 tab 12/23/17 [Rx Confirmed Last Taken 02/17/18 08:00] cholecalciferol (vitamin D3) 1,000 unit capsule 1,000 unit PO QDAY #1 cap [Rx Confirmed 02/18/18 Last Taken 02/17/18 21:00] Bumetanide 5 mg PO QDAY 02/13/18 [History Confirmed 02/18/18 Last Taken 08:00] Latanoprost Ophth Drops [Xalatan Ophth Drops] 1 gtt OD HS 02/13/18 [History Confirmed 02/18/18 Last Taken 02/17/18 21:00] Magnesium Oxide 400 mg PO DAILY 02/13/18 [History Confirmed 02/18/18 Last Taken 02/17/18 21:00] Multivit,Ther Iron,Ca,FA & Min [Multivitamin W/Minerals] 1 tab PO DAILY [History Confirmed 02/18/18 Last Taken 02/17/18 09:00] Multivit-Min/Iron/Folic/Fqw200 [Hair, Skin and Nails Tablet] 2 tab PO DAILY [History Confirmed 02/18/18 Last Taken 02/17/18 09:00] Ubidecarenone [Coq-10] 100 mg PO DAILY 02/13/18 [History Confirmed 02/18/18 Last Taken 02/12/18 08:00] Warfarin [Coumadin] 4 mg PO Q48H 02/13/18 [History Confirmed 02/18/18 Last Taken 02/12/18 21:00] Warfarin [Coumadin] 6 mg PO Q48H 02/13/18 [History Confirmed 02/18/18 Last Taken 02/12/18 21:00] Acetaminophen W/Codeine #3 [Tylenol #3] 1 - 2 tab PO Q4HP PRN #60 tab 02/20/18 [ Rx Last Taken Unknown] Aspirin [Ecotrin] 325 mg PO BID #60 tab.ec 02/20/18 [Rx Last Taken Unknown] morphine 15 mg PO Q4-6HP PRN #30 tab 02/20/18 [Rx Last Taken Unknown] traMADol [Ultram] 50 - 100 mg PO Q4-6HP PRN #60 tab 02/21/18 [Rx Last Taken Unknown] Medical - DS: Hosp Hospital course: Mr. Carranza is a 82 year old F admitted to ortho service for elective left knee arthroplasty, Post op the patient had some confusion, delirum, nausea and vomiting and increased oxygen needs. Medicine was consulted for further - Time Spent with Patient Total time spent providing and/or coordinating discharge services: Medical - DS: Exam - Constitutional Vitals: Vital Signs Temp Pulse Pulse Resp BP Pulse Ox 02/22/18 09:43 99 02/22/18 09:41 99 02/22/18 07:27 71 16 96 02/22/18 06:44 97.6 F 20 123/70 96 02/22/18 06:00 97 02/22/18 03:40 97.2 F 71 16 123/65 93 02/22/18 00:15 99 02/22/18 00:00 97.2 F 72 16 109/66 95 02/21/18 19:57 97.4 F 70 18 122/72 97 02/21/18 19:00 78 15 98 02/21/18 18:38 78 15 02/21/18 16:00 97.6 F 16 133/76 98 02/21/18 10:59 97.8 F 14 115/62 98 Intake and Output 02/21/18 02/22/18 02/22/18 21:59 05:59 13:59 Intake Total 1320 / 1320 800 / 800 Output Total 800 / 800 600 / 600 275 / 275 Balance 520 / 520 200 / 200 -275 / -275 Intake: IV 520 / 520 Oral 800 / 800 800 / 800 Output: Void Amount 800 / 800 600 / 600 275 / 275 # of times incontinent of urine 0 / 0 Other: Meal Breakfast Percent of Meal Consumed 100% Urine Appearance Clear Clear Clear Urine Color Dark Yellow Bright Yellow Bright Yellow Urine Odor Normal Normal Normal # Voids 1 1 Weight 169 lb Medical - DS: Data Labs on day of discharge: Labs from last 24 hours 02/22/18 02/22/18 02/21/18 04:00 04:00 08:07 WBC 7.8 RBC 3.56 L Hgb 11.2 L Hct 33.4 L MCV 93.8 MCH 31.4 MCHC 33.5 RDW 14.8 H Plt Count 166 MPV 9.3 Gran % 68.8 Lymph % (Auto) 19.2 Barren % (Auto) 11.5 Eos % (Auto) 0.1 Baso % (Auto) 0.4 Gran # 5.3 Lymph # (Auto) 1.5 Barren # (Auto) 0.9 Eos # (Auto) 0 Baso # (Auto) 0 D-Dimer 0.98 H Sodium 133 Potassium 3.4 Chloride 88 L Carbon Dioxide 35 H Anion Gap 10.0 BUN 8 Creatinine 0.6 GFR Calculation 85 Glucose 116 H Uric Acid 5.2 Calcium 9.0 Phosphorus 2.4 L Magnesium 1.8 Total Bilirubin 0.6 Direct Bilirubin < 0.2 GGT 36 AST 29 ALT 33 Alkaline Phosphatase 85 Lactate Dehydrogenase 491 H Total Protein 5.8 L Albumin 3.1 L Globulin 2.7 Albumin/Globulin Ratio 1.1 Triglycerides 71 Medical - DS: A/P - Patient/Caregiver Discharge Instructions Additional Instructions: Discharge Instructions: Do the exercises at home that physical therapy gave you throughout the day. Weight bearing as tolerated. Wear comfortable clothing for physical therapy. You have Dermabond (a dressing with a mesh-like appearance), DO NOT remove mesh. Cover site daily with gauze dressing. You may start showering on post op day #2. The Dermabond dressing can get wet, do not scrub dressing. Pat dry, then place new dressing (above). To avoid constipation while taking any narcotic pain medication, take an over the counter stool softener/laxative. Use your Cryocuff or ice packs as directed, on for 20 minutes at a time throughout the day. This and elevation will help with pain and swelling. Call your physician for fevers above 100.5 or pain not controlled by medication. Your prescriptions are with your discharge information. Some medications were electronically transmitted to your pharmacy of choice. Take Aspirin twice daily, for 30 days, as prescribed to prevent blood clots ( see medication list). Prescriptions: Acetaminophen W/Codeine #3 [Tylenol #3] 1 - 2 tab PO Q4HP PRN #60 tab PRN Reason: Pain Aspirin [Ecotrin] 325 mg PO BID #60 tab.ec morphine 15 mg PO Q4-6HP PRN #30 tab PRN Reason: Pain Level 3-6 traMADol [Ultram] 50 - 100 mg PO Q4-6HP PRN #60 tab PRN Reason: Pain Other Amb Orders: OT Discharge Order Location: None Selected Physical Therapy at Discharge - TKA Location: None Selected Toilet Riser Discharge Order Location: None Selected Walker Location: None Selected - Problem Maintenance (1) Acute respiratory failure with hypoxia Status: Acute (2) Ileus, postoperative Status: Acute (3) Nausea & vomiting Status: Acute (4) DIANE (obstructive sleep apnea) Status: Acute (5) Atrial fibrillation Status: Chronic Comment: 2008 pacemaker Qualifiers: Atrial fibrillation type: paroxysmal Qualified Code(s): I48.0 - Paroxysmal atrial fibrillation (6) PFO (patent foramen ovale) Status: Acute (7) Hypertension, essential Status: Chronic Comment: 1974 - Follow up Plan Follow up with: Ioana Wynne PA-C [Physician Material Handling Crew Supervisor] - 03/05/18 1:40 pm Disposition: [facility] Prognosis: Good Medical - DS: Qual - VTE Deep Vein Thrombosis/Pulmonary Embolism Present on Admission: No
--- NOTE | 2018-02-22 12:49 | Internal Med Progress Note ---
Medical - PN: Subj Patient information: Note initiated : 02/22/18 at 12:46 pm Service Date, if different from initiated Date: [] Patient: Anamika Carranza 82 y/o F admitted on 02/18/18 for Left Total Knee Arhtroplasty. Chief Complaint: [] Interval history: Ms. Carranza is a 82 year old F who was admitted to the ortho service for elective TKA, this surgery was done on the , no acute complications reported, On post op day 1 the patient was reportedly doing well, she developed nause and vomiting yesterday, and today has been noted to be very drowsy and having increased oxygen needs. Medicine is consulted for further management On my eval, the patient and her daughter provided most of history THe patient was in the bed, had no acute complaints, she notes 3-4 episodes of vomiting, but no episodes this AM, she notes that she has not had any other major complaints, knee pain is ok as long as she is not moving. She notes she has a history of not doing well postoperatively especially when she gets narcotic pain medications. The patient has been getting tramadol Tylenol 3 and some morphine postoperatively in low doses. The patient denies any chest pain cough or shortness of breath, had one episode of headache yesterday but no changes in vision no difficulty in swallowing she has no urinary complaints. The patient notes that she has not had a bowel movement for the last 4 days and is not really passing much gas either. She has a lot of burping. She still feels drowsy but seems to be more awake according to the daughter. 10 pt seen examined, appears much better than yesterday, still feels weak, no bm this AM, despite aggresive bowel regime, X ray abdomen shows ileus, improving, passing gas Still on 2 L oxygen has no othe complaints initially plan for D/C but given ileus and no BM in 6 days, it was decided to watch patient over the weekend ensure improved bowel function before dischawrge. CTA neg for PE, no e/o chf, mild bronchitis/ asthma on CT but no e/o wheezing, on duonebs Aggresive pulmonary toilet to continue. Pertinent ROS: Denies headache, dizziness Denies chest pain, palpitations Denies cough or shortness of breath Denies abdominal pain, nausea or vomiting. Constipation present - Constitutional Vitals: Vital Signs Temp Pulse Resp BP Pulse Ox 98.7 F 72 20 123/71 98 02/22/18 11:51 02/22/18 10:57 02/22/18 11:51 02/22/18 11:51 02/22/18 11:51 Period Temp Pulse Resp BP Sys/Sargent Pulse Ox Last 24 Hr 97.2 F-98.7 F 70-78 15-20 109-133/65-76 86-99 Intake and Output 02/21/18 02/22/18 02/22/18 21:59 05:59 13:59 Intake Total 1320 / 1320 800 / 800 500 / 500 Output Total 800 / 800 600 / 600 775 / 775 Balance 520 / 520 200 / 200 -275 / -275 Weight 169 lb Intake & Output: Intake & Output 02/21/18 02/22/18 02/22/18 21:59 05:59 13:59 Intake Total 1320 / 1320 800 / 800 500 / 500 Output Total 800 / 800 600 / 600 775 / 775 Balance 520 / 520 200 / 200 -275 / -275 Weight 169 lb Intake: IV 520 / 520 Oral 800 / 800 800 / 800 500 / 500 Output: Void Amount 800 / 800 600 / 600 775 / 775 # of times incontinent of urine 0 / 0 Other: Meal Lunch Percent of Meal Consumed 100% Feeding Ability Independent Urine Appearance Clear Clear Clear Urine Color Dark Yellow Bright Yellow Bright Yellow Urine Odor Normal Normal Normal Stool Size Small Stool Color Brown Stool Consistency Tahmina # Voids 1 1 # Bowel Movements 1 # of times incontinent of 0 Bowels Exam: Constitutional; Afebrile, cooperative, alert, not in distress. Eyes- No icterus, , No periorbital swelling Ears- Ext ear normal, hearing normal to conversation. Neck- Midline trachea, supple Respiratory system: Air Entry equal on both sides, No crackles or wheezing, no rhonchi. CVS- Rate rhythm regular, S1,S2 heard, no gallop, no rub. 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 Medical - PN: Obj Da - Labs CBC & Chem 7: 02/22/18 04:00 02/22/18 04:00 Labs: Abnormal Lab Results 02/22/18 02/22/18 02/21/18 04:00 04:00 08:13 RBC 3.56 L Hgb 11.2 L Hct 33.4 L RDW 14.8 H Seg Neutrophils % Lymphocytes % WBC Morphology Toxic Granulation RBC Morphology Hypochromasia Anisocytosis PT INR D-Dimer Sodium Potassium Chloride 88 L Carbon Dioxide 35 H Glucose 116 H Phosphorus 2.4 L Lactate Dehydrogenase 491 H NT-Pro-B Natriuret Pep 2422.0 H Total Protein 5.8 L Albumin 3.1 L 02/21/18 02/21/18 02/21/18 08:13 08:13 08:07 RBC 3.77 L Hgb 11.8 L Hct 35.2 L RDW 15.3 H Seg Neutrophils % 80 H Lymphocytes % 14 L WBC Morphology Abnorm A Toxic Granulation 1+ A RBC Morphology Abnorm A Hypochromasia 1+ A Anisocytosis 1+ A PT INR D-Dimer 0.98 H Sodium 132 L Potassium 2.9 L* Chloride 88 L Carbon Dioxide 33 H Glucose 145 H Phosphorus 2.2 L Lactate Dehydrogenase NT-Pro-B Natriuret Pep Total Protein Albumin 02/21/18 02/21/18 02/20/18 08:07 04:15 04:12 RBC Hgb 11.4 L 11.4 L Hct 33.3 L 34.3 L RDW Seg Neutrophils % Lymphocytes % WBC Morphology Toxic Granulation RBC Morphology Hypochromasia Anisocytosis PT 16.7 H INR 1.3 H D-Dimer Sodium Potassium Chloride Carbon Dioxide Glucose Phosphorus Lactate Dehydrogenase NT-Pro-B Natriuret Pep Total Protein Albumin Meds: Medications Acetaminophen (Tylenol) 1,000 mg PO TID [facility] Last Admin: 02/22/18 08:28 Dose: 1,000 mg Albuterol/Ipratropium (Duoneb) 3 ml NEB Q4HRT [facility] Last Admin: 02/22/18 11:47 Dose: Not Given Bisacodyl (Dulcolax) 10 mg OR Q2-3DAYS PRN PRN Reason: Constipation Bumetanide (Bumex) 1 mg PO DAILY [facility] Last Admin: 02/22/18 08:27 Dose: 1 mg Calcium Carbonate/Glycine (Tums) 500 mg CHEWED Q4HP PRN PRN Reason: Dyspepsia Last Admin: 02/21/18 13:56 Dose: 500 mg Diclofenac Sodium (Diclofenac Sodium) 0 ml OP DAILY [facility] Last Admin: 02/22/18 08:28 Dose: 2.5 ml Docusate Sodium (Colace) 100 mg PO BID [facility] Last Admin: 02/22/18 08:27 Dose: 100 mg Enoxaparin Sodium (Lovenox) 40 mg SQ DAILY [facility] Latanoprost (Xalatan Ophth Drops) 1 gtt OD HS [facility] Last Admin: 02/21/18 20:14 Dose: 1 gtt Magnesium Hydroxide (Milk Of Magnesia) 30 ml PO BIDP PRN PRN Reason: Constipation Last Admin: 02/22/18 06:55 Dose: 30 ml Magnesium Oxide (Magnesium Oxide) 400 mg PO DAILY [facility] Last Admin: 02/22/18 08:27 Dose: 400 mg Methocarbamol (Robaxin) 750 mg PO Q6HP PRN PRN Reason: Muscle Spasm Last Admin: 02/20/18 00:09 Dose: 750 mg Omeprazole (Prilosec) 20 mg PO BIDAC [facility] Last Admin: 02/22/18 06:55 Dose: 20 mg Ondansetron HCl (Zofran) 4 mg IV Q4HP PRN PRN Reason: Nausea And Vomiting Last Admin: 02/20/18 10:48 Dose: 4 mg Ondansetron HCl (Zofran Odt) 4 mg SL Q4HP PRN PRN Reason: Nausea And Vomiting Last Admin: 02/21/18 10:36 Dose: 4 mg Polyethylene Glycol (Miralax) 17 gm PO DAILYP PRN PRN Reason: Constipation Senna (Senokot) 2 tab PO HS [facility] Last Admin: 02/21/18 20:14 Dose: 2 tab Senna/Docusate Sodium (Senna Plus Tablet) 1 tab PO BID [facility] Last Admin: 02/22/18 08:27 Dose: 1 tab Sodium Biphosphate/Sodium Phosphate (Fleets Adult) 1 dose OR Q3-4DAYS PRN PRN Reason: Constipation Last Admin: 02/22/18 10:51 Dose: 1 dose Sodium Chloride (Saline Flush) 10 ml IV Q8 [facility] Last Admin: 02/22/18 05:54 Dose: 10 ml Spironolactone (Aldactone) 50 mg PO DAILY [facility] Last Admin: 02/22/18 08:27 Dose: 50 mg Throat Lozenges (Cepacol) 1 lozenge PO PRN PRN PRN Reason: Sore Throat Warfarin Sodium (Coumadin) 4 mg PO Q48@1400 [facility] Last Admin: 02/21/18 13:57 Dose: 4 mg Warfarin Sodium (Coumadin) 6 mg PO Q48@1400 [facility] Last Admin: 02/20/18 14:24 Dose: 6 mg Medical - PN: A/P - Time Spent With Patient Total time spent is greater than 50% in coordination of care (as documented) at patient's floor/unit and/or counseling patient: (1) Acute respiratory failure with hypoxia Status: Acute Assessment and plan: post op, due to poor diaphragmatic movement, oxygen sats are good when using incentive spirometer no pe noted no e/o chf Will continue with aggressive pulmonary toilet, anticipate improvement in oxygenation once ileus is improved. Current Visit: Yes (2) Ileus, postoperative Status: Acute Assessment and plan: improving continue medical management Current Visit: Yes (3) Nausea & vomiting Status: Acute Assessment and plan: resolved Current Visit: Yes (4) DIANE (obstructive sleep apnea) Status: Acute Assessment and plan: on cpap continue same Current Visit: No (5) Atrial fibrillation Problem details: 2008 pacemaker Status: Chronic Current Visit: No (6) PFO (patent foramen ovale) Status: Acute Current Visit: No (7) Hypertension, essential Problem details: 1974 Status: Chronic Assessment and plan: bp stable. Current Visit: No Medical - PN: Qual - VTE Deep Vein Thrombosis/Pulmonary Embolism Present on Admission: No
[2018-02-22] MEDS: WARFARIN 3 MG TABLET PO SCH (14:06)
[2018-02-22] MEDS: LATANOPROST OPHTH DROPS 2.5ML BOTTLE OD SCH (20:55)
[2018-02-22] MEDS: SENNOSIDES 1 TABLET PO SCH (20:57)
[2018-02-22] MEDS ORDERED: VIT D PO SCH (21:51)
[2018-02-22] MEDS ORDERED: CALCIUM PO SCH (21:51)
[2018-02-22] MEDS: METHOCARBAMOL 750 MG TABLET PO PRN (23:59)
[2018-02-23] MEDS: IPRATROPIUM/ALBUTEROL 3 ML AMPUL.NEB NEB SCH ×6 (03:13→23:19)
[2018-02-23] MEDS: 0.9 % SODIUM CHLORIDE 10 ML SYRINGE IV SCH ×3 (04:06→21:26)
[2018-02-23] MEDS: METHOCARBAMOL 750 MG TABLET PO PRN ×3 (05:16→21:22)
[2018-02-23] MEDS: OMEPRAZOLE 20 MG CAPSULE PO SCH ×2 (07:41→16:32)
[2018-02-23] MEDS: SENNOSIDES/DOCUSATE SODIUM 1 TAB TABLET PO SCH ×2 (08:51→21:26)
[2018-02-23] MEDS: DOCUSATE SODIUM 100 MG CAPSULE PO SCH ×2 (08:51→21:22)
[2018-02-23] MEDS: CALCIUM W/VIT D3 500 MG TABLET PO SCH (08:54)
[2018-02-23] MEDS: SPIRONOLACTONE 25 MG TABLET PO SCH (08:54)
[2018-02-23] MEDS: MAGNESIUM OXIDE 400 MG TABLET PO SCH (08:54)
[2018-02-23] MEDS: BUMETANIDE 1 MG TABLET PO SCH (08:54)
[2018-02-23] MEDS: ACETAMINOPHEN 500 MG TABLET PO SCH ×3 (08:54→21:22)
[2018-02-23] MEDS ORDERED: ENOXAPARIN 40 MG/0.4 ML SYRINGE SQ SCH (09:00)
[2018-02-23] MEDS: DICLOFENAC SODIUM 2.5 ML DROPS OP SCH (09:00)
--- NOTE | 2018-02-23 12:22 | Internal Med Progress Note ---
Medical - PN: Subj Patient information: Note initiated : 02/23/18 at 12:21 pm Service Date, if different from initiated Date: [] Patient: Anamika Carranza 82 y/o F admitted on 02/18/18 for Left Total Knee Arhtroplasty. Chief Complaint: [] Interval history: Ms. Carranza is a 82 year old F who was admitted to the ortho service for elective TKA, this surgery was done on the , no acute complications reported, On post op day 1 the patient was reportedly doing well, she developed nause and vomiting yesterday, and today has been noted to be very drowsy and having increased oxygen needs. Medicine is consulted for further management On my eval, the patient and her daughter provided most of history THe patient was in the bed, had no acute complaints, she notes 3-4 episodes of vomiting, but no episodes this AM, she notes that she has not had any other major complaints, knee pain is ok as long as she is not moving. She notes she has a history of not doing well postoperatively especially when she gets narcotic pain medications. The patient has been getting tramadol Tylenol 3 and some morphine postoperatively in low doses. The patient denies any chest pain cough or shortness of breath, had one episode of headache yesterday but no changes in vision no difficulty in swallowing she has no urinary complaints. The patient notes that she has not had a bowel movement for the last 4 days and is not really passing much gas either. She has a lot of burping. She still feels drowsy but seems to be more awake according to the daughter. 02/22 pt seen examined, appears much better than yesterday, still feels weak, no bm this AM, despite aggresive bowel regime, X ray abdomen shows ileus, improving, passing gas Still on 2 L oxygen has no othe complaints initially plan for D/C but given ileus and no BM in 6 days, it was decided to watch patient over the weekend ensure improved bowel function before dischawrge. CTA neg for PE, no e/o chf, mild bronchitis/ asthma on CT but no e/o wheezing, on duonebs Aggresive pulmonary toilet to continue. 02/23 Patient seen and examined, no acute complaints no acute overnight events. She had bowel movement yesterday and again today. She has no GI complaints. Based on vitals review it seems that she has been off oxygen this morning, but probably needs oxygen when she sleeps. Discontinue enoxaparin as patient's INR is therapeutic. d/c to snf in am Pertinent ROS: Denies headache, dizziness Denies chest pain, palpitations Denies cough or shortness of breath Denies abdominal pain, nausea or vomiting. - Constitutional Vitals: Vital Signs Temp Pulse Resp BP Pulse Ox 97.5 F 91 H 16 125/78 99 02/23/18 07:56 02/23/18 08:11 02/23/18 08:11 02/23/18 07:56 02/23/18 07:56 Period Temp Pulse Resp BP Sys/Sargent Pulse Ox Last 24 Hr 97.5 F-98.7 F 68-91 12-20 108-134/67-78 95-100 Intake and Output 02/22/18 02/23/18 02/23/18 21:59 05:59 13:59 Intake Total 600 / 600 200 / 200 Output Total 950 / 950 1100 / 1100 350 / 350 Balance -350 / -350 -900 / -900 -350 / -350 Weight 171 lb Intake & Output: Intake & Output 02/22/18 02/23/18 02/23/18 21:59 05:59 13:59 Intake Total 600 / 600 200 / 200 Output Total 950 / 950 1100 / 1100 350 / 350 Balance -350 / -350 -900 / -900 -350 / -350 Weight 171 lb Intake: Oral 600 / 600 200 / 200 Output: Void Amount 950 / 950 950 / 950 350 / 350 # of times incontinent of urine 0 / 0 0 / 0 Urine/Stool Mix 150 / 150 Other: Meal Dinner Breakfast Percent of Meal Consumed 100% 100% Feeding Ability Independent Independent Urine Appearance Clear Clear Clear Urine Color Bright Yellow Bright Yellow Bright Yellow Urine Odor Normal Normal Stool Size Moderate Small Small Stool Color Brown Brown Brown Stool Consistency Soft Loose Formed # Voids 1 1 # Bowel Movements 1 Exam: Constitutional; Afebrile, cooperative, alert, not in distress. Eyes- No icterus, , No periorbital swelling Ears- Ext ear normal, hearing normal to conversation. Neck- Midline trachea, supple Respiratory system: Air Entry equal on both sides, No crackles or wheezing, no rhonchi. CVS- Rate rhythm regular, S1,S2 heard, no gallop, no rub. Abdomen- Soft nontender abdomen, no organomegaly, no tenderness, no guarding or rigidity, SYSTEM ANALYST- AOOx3, moving all extremities, no gross focal deficit noted. Medical - PN: Obj Da - Labs CBC & Chem 7: 02/22/18 04:00 02/22/18 04:00 Labs: Abnormal Lab Results 02/23/18 02/22/18 02/22/18 04:35 12:10 04:00 RBC Hgb Hct RDW Seg Neutrophils % Lymphocytes % WBC Morphology Toxic Granulation RBC Morphology Hypochromasia Anisocytosis PT 23.0 H 21.0 H INR 2.0 H 1.8 H D-Dimer Sodium Potassium Chloride 88 L Carbon Dioxide 35 H Glucose 116 H Phosphorus 2.4 L Lactate Dehydrogenase 491 H NT-Pro-B Natriuret Pep Total Protein 5.8 L Albumin 3.1 L 02/22/18 02/21/18 02/21/18 04:00 08:13 08:13 RBC 3.56 L Hgb 11.2 L Hct 33.4 L RDW 14.8 H Seg Neutrophils % Lymphocytes % WBC Morphology Toxic Granulation RBC Morphology Hypochromasia Anisocytosis PT INR D-Dimer Sodium 132 L Potassium 2.9 L* Chloride 88 L Carbon Dioxide 33 H Glucose 145 H Phosphorus 2.2 L Lactate Dehydrogenase NT-Pro-B Natriuret Pep 2422.0 H Total Protein Albumin 02/21/18 02/21/18 02/21/18 08:13 08:07 08:07 RBC 3.77 L Hgb 11.8 L Hct 35.2 L RDW 15.3 H Seg Neutrophils % 80 H Lymphocytes % 14 L WBC Morphology Abnorm A Toxic Granulation 1+ A RBC Morphology Abnorm A Hypochromasia 1+ A Anisocytosis 1+ A PT 16.7 H INR 1.3 H D-Dimer 0.98 H Sodium Potassium Chloride Carbon Dioxide Glucose Phosphorus Lactate Dehydrogenase NT-Pro-B Natriuret Pep Total Protein Albumin 02/21/18 04:15 RBC Hgb 11.4 L Hct 33.3 L RDW Seg Neutrophils % Lymphocytes % WBC Morphology Toxic Granulation RBC Morphology Hypochromasia Anisocytosis PT INR D-Dimer Sodium Potassium Chloride Carbon Dioxide Glucose Phosphorus Lactate Dehydrogenase NT-Pro-B Natriuret Pep Total Protein Albumin Meds: Medications Acetaminophen (Tylenol) 1,000 mg PO TID [facility] Last Admin: 02/23/18 08:54 Dose: 1,000 mg Albuterol/Ipratropium (Duoneb) 3 ml NEB Q4HRT [facility] Last Admin: 02/23/18 08:11 Dose: Not Given Bisacodyl (Dulcolax) 10 mg [facility] Q2-3DAYS PRN PRN Reason: Constipation Bumetanide (Bumex) 1 mg PO DAILY [facility] Last Admin: 02/23/18 08:54 Dose: 1 mg Calcium Carbonate/Glycine (Tums) 500 mg CHEWED Q4HP PRN PRN Reason: Dyspepsia Last Admin: 02/21/18 13:56 Dose: 500 mg Calcium/Vitamin D (Calcium W/Vit D3) 1,000 mg PO DAILY [facility] Last Admin: 02/23/18 08:54 Dose: 1,000 mg Diclofenac Sodium (Diclofenac Sodium) 0 ml OP DAILY [facility] Last Admin: 02/23/18 09:00 Dose: 2.5 ml Docusate Sodium (Colace) 100 mg PO BID [facility] Last Admin: 02/23/18 08:51 Dose: Not Given Latanoprost (Xalatan Ophth Drops) 1 gtt OD HS [facility] Last Admin: 02/22/18 20:55 Dose: 1 gtt Magnesium Hydroxide (Milk Of Magnesia) 30 ml PO BIDP PRN PRN Reason: Constipation Last Admin: 02/22/18 16:17 Dose: 30 ml Magnesium Oxide (Magnesium Oxide) 400 mg PO DAILY [facility] Last Admin: 02/23/18 08:54 Dose: 400 mg Methocarbamol (Robaxin) 750 mg PO Q6HP PRN PRN Reason: Muscle Spasm Last Admin: 02/23/18 05:16 Dose: 750 mg Omeprazole (Prilosec) 20 mg PO BIDAC [facility] Last Admin: 02/23/18 07:41 Dose: 20 mg Ondansetron HCl (Zofran) 4 mg IV Q4HP PRN PRN Reason: Nausea And Vomiting Last Admin: 02/20/18 10:48 Dose: 4 mg Ondansetron HCl (Zofran Odt) 4 mg SL Q4HP PRN PRN Reason: Nausea And Vomiting Last Admin: 02/21/18 10:36 Dose: 4 mg Polyethylene Glycol (Miralax) 17 gm PO DAILYP PRN PRN Reason: Constipation Senna (Senokot) 2 tab PO HS [facility] Last Admin: 02/22/18 20:57 Dose: Not Given Senna/Docusate Sodium (Senna Plus Tablet) 1 tab PO BID [facility] Last Admin: 02/23/18 08:51 Dose: Not Given Sodium Biphosphate/Sodium Phosphate (Fleets Adult) 1 dose [facility] Q3-4DAYS PRN PRN Reason: Constipation Last Admin: 02/22/18 10:51 Dose: 1 dose Sodium Chloride (Saline Flush) 10 ml IV Q8 [facility] Last Admin: 02/23/18 04:06 Dose: Not Given Spironolactone (Aldactone) 50 mg PO DAILY [facility] Last Admin: 02/23/18 08:54 Dose: 50 mg Throat Lozenges (Cepacol) 1 lozenge PO PRN PRN PRN Reason: Sore Throat Warfarin Sodium (Coumadin) 4 mg PO Q48@1400 [facility] Last Admin: 02/21/18 13:57 Dose: 4 mg Warfarin Sodium (Coumadin) 6 mg PO Q48@1400 [facility] Last Admin: 02/22/18 14:06 Dose: 6 mg Medical - PN: A/P - Time Spent With Patient Total time spent is greater than 50% in coordination of care (as documented) at patient's floor/unit and/or counseling patient: (1) Acute respiratory failure with hypoxia Status: Acute Assessment and plan: post op, due to poor diaphragmatic movement, oxygen sats are good when using incentive spirometer no pe noted no e/o chf Will continue with aggressive pulmonary toilet, seems back to baseline oxygen needs now. Current Visit: Yes (2) Ileus, postoperative Status: Acute Assessment and plan: resolved continue medical management Current Visit: Yes (3) Nausea & vomiting Status: Acute Assessment and plan: resolved Current Visit: Yes (4) DIANE (obstructive sleep apnea) Status: Acute Assessment and plan: on cpap continue same Current Visit: No (5) Atrial fibrillation Problem details: 2008 pacemaker Status: Chronic Current Visit: No (6) PFO (patent foramen ovale) Status: Acute Current Visit: No (7) Hypertension, essential Problem details: 1974 Status: Chronic Assessment and plan: bp stable. Current Visit: No Medical - PN: Qual - VTE Deep Vein Thrombosis/Pulmonary Embolism Present on Admission: No
[2018-02-23] MEDS: WARFARIN 4 MG TABLET PO SCH (14:01)
[2018-02-23] MEDS: LATANOPROST OPHTH DROPS 2.5ML BOTTLE OD SCH (21:21)
[2018-02-23] MEDS: SENNOSIDES 1 TABLET PO SCH (21:25)
[2018-02-24] MEDS: IPRATROPIUM/ALBUTEROL 3 ML AMPUL.NEB NEB SCH ×2 (02:56→07:42)
[2018-02-24] MEDS: METHOCARBAMOL 750 MG TABLET PO PRN (02:56)
[2018-02-24] MEDS: OMEPRAZOLE 20 MG CAPSULE PO SCH (07:35)
[2018-02-24] MEDS: 0.9 % SODIUM CHLORIDE 10 ML SYRINGE IV SCH (07:35)
[2018-02-24] MEDS ORDERED: IPRATROPIUM/ALBUTEROL 3 ML AMPUL.NEB NEB PRN (07:49)
[2018-02-24] MEDS: CALCIUM W/VIT D3 500 MG TABLET PO SCH (08:53)
[2018-02-24] MEDS: SENNOSIDES/DOCUSATE SODIUM 1 TAB TABLET PO SCH (08:56)
[2018-02-24] MEDS: DOCUSATE SODIUM 100 MG CAPSULE PO SCH (08:57)
[2018-02-24] MEDS: SPIRONOLACTONE 25 MG TABLET PO SCH (08:57)
[2018-02-24] MEDS: BUMETANIDE 1 MG TABLET PO SCH (08:57)
[2018-02-24] MEDS: DICLOFENAC SODIUM 2.5 ML DROPS OP SCH (08:58)
[2018-02-24] MEDS: MAGNESIUM OXIDE 400 MG TABLET PO SCH (08:58)
[2018-02-24] MEDS ORDERED: ACETAMINOPHEN 500 MG TABLET PO SCH (09:00)
[2018-02-24] MEDS ORDERED: CELECOXIB 200 MG CAPSULE PO SCH (09:00)
--- NOTE | 2018-02-24 09:14 | Discharge Summary ---
Medical - DS: Prov Patient information: Note initiated : 02/24/18 at 9:02 am Service Date, if different from initiated Date: [] Patient: Anamika Carranza 82 y/o F admitted on 02/18/18 for Left Total Knee Arhtroplasty. Chief Complaint: [] Date of admission: 02/18/18 08:10 Discharge date: 02/24/18 Primary care physician: Kimani Norwood Consults: 02/21/18 07:04 Consult to Physician [CONS] Routine Comment: Consulting Provider: Mary Pardo Reason For Exam: Physician to Consult Discharging clinician: Mary Pardo Medical - DS: Meds - Discharge Medications Prescriptions: Bumetanide 1 mg PO QDAY #30 tab Active and Home Medications: Home Medications diclofenac 0.1 % eye drops 1 drp OD HS ml 10/07/15 [History Confirmed 02/19/18 Last Taken 02/17/18 21:00] biotin 5,000 mcg sublingual tablet 10,000 mcg SUBLINGUAL QDAY 08/12/17 [History Confirmed 02/18/18 Last Taken 02/17/18 09:00] spironolactone 50 mg tablet 50 mg PO DAILY #90 tab 12/23/17 [Rx Confirmed Last Taken 02/17/18 08:00] cholecalciferol (vitamin D3) 1,000 unit capsule 1,000 unit PO QDAY #1 cap [Rx Confirmed 02/18/18 Last Taken 02/17/18 21:00] Latanoprost Ophth Drops [Xalatan Ophth Drops] 1 gtt OD HS 02/13/18 [History Confirmed 02/18/18 Last Taken 02/17/18 21:00] Magnesium Oxide 400 mg PO DAILY 02/13/18 [History Confirmed 02/18/18 Last Taken 02/17/18 21:00] Multivit,Ther Iron,Ca,FA & Min [Multivitamin W/Minerals] 1 tab PO DAILY [History Confirmed 02/18/18 Last Taken 02/17/18 09:00] Ubidecarenone [Coq-10] 100 mg PO DAILY 02/13/18 [History Confirmed 02/18/18 Last Taken 02/12/18 08:00] Warfarin [Coumadin] 4 mg PO Q48H 02/13/18 [History Confirmed 02/18/18 Last Taken 02/12/18 21:00] Warfarin [Coumadin] 6 mg PO Q48H 02/13/18 [History Confirmed 02/18/18 Last Taken 02/12/18 21:00] Acetaminophen [Tylenol] 1,000 mg PO TID tablet 02/22/18 [Rx Last Taken Unknown] Bumetanide 1 mg PO QDAY #30 tab 02/22/18 [Rx Last Taken Unknown] Calcium 600 + Vit D Tablet 2 tab PO DAILY 02/22/18 [History Confirmed 02/22/18 Last Taken Unknown] Sennosides [Senokot] 2 tab PO HS tablet 02/22/18 [Rx Last Taken Unknown] traMADol HCL [Ultram] 25 mg PO Q4HP PRN #30 tab 02/22/18 [Rx Last Taken Unknown] Medical - DS: Hosp Hospital course: Ms. Carranza is a 82 year old F who was admitted to the ortho service for elective TKA, this surgery was done on the , no acute complications reported, On post op day 1 the patient was reportedly doing well, she developed nausea and vomiting , and noted to be very drowsy and having increased oxygen needs. Medicine is consulted for further management. Post op nausea/vomiting- due to medications, resolved with cessation of narcotic treatment Post op ileus- Due to narcotic- resolved, pt is having good BM Hypoxia, resp failure- CXR neg, Patient is off oxygen at the time of discharge Post op pain management- Given her intolenece to even small doses of narcotics, we will use tylenol 1gm q6hrs, and celecoxib to help manage her pain. DVT prophylaxis- pt is on coumadin, with therapeutic INR, continue same. See ortho discharge summary for details on post surgical case. No changes made to [facility] home med list. Discharge diagnosis: Knee arthroplasty, Post op delirum, hypoxia - Time Spent with Patient Total time spent providing and/or coordinating discharge services: Greater than 30 minutes Medical - DS: Exam - Constitutional Vitals: Vital Signs Temp Pulse Pulse Resp BP BP Pulse Ox 02/24/18 07:59 97.5 F 72 16 135/82 02/24/18 07:54 16 94 02/24/18 07:40 72 02/24/18 03:13 97.2 F 72 22 144/77 95 10/07/18 23:28 74 16 97 02/23/18 23:27 82 16 02/23/18 23:15 97.6 F 74 22 109/68 97 02/23/18 20:00 98.7 F 72 24 H 127/73 94 02/23/18 16:33 71 92 02/23/18 16:00 97.3 F 20 112/59 94 02/23/18 15:56 70 18 02/23/18 15:49 97 02/23/18 12:00 98.2 F 20 138/56 95 Intake and Output 02/23/18 02/24/18 02/24/18 21:59 05:59 13:59 Intake Total 800 / 800 150 / 150 Output Total 400 / 400 275 / 275 Balance 400 / 400 -125 / -125 Intake: Oral 800 / 800 150 / 150 Output: Void Amount 400 / 400 275 / 275 Other: Urine Appearance Clear Clear Urine Color Straw Straw Urine Odor Normal Stool Size Large Stool Color Brown Stool Consistency Soft Formed # Voids 1 1 # Bowel Movements 1 Weight 171 lb 8 oz Additional comments: Constitutional; Afebrile, cooperative, alert, not in distress. Eyes- No icterus, , No periorbital swelling Ears- Ext ear normal, hearing normal to conversation. Neck- Midline trachea, supple Respiratory system: Air Entry equal on both sides, No crackles or wheezing, no rhonchi. CVS- Rate rhythm irregular, S1,S2 heard, no gallop, no rub. Abdomen- Soft nontender abdomen, no organomegaly, no tenderness, no guarding or rigidity, COW WASHER- AOOx3, moving all extremities, no gross focal deficit noted. Medical - DS: A/P - Patient/Caregiver Discharge Instructions Activity: as per physical therapy, increase activity as tolerated Diet: Regular Diet Additional Instructions: Discharge Instructions: Do the exercises at home that physical therapy gave you throughout the day. Weight bearing as tolerated. Wear comfortable clothing for physical therapy. You have Dermabond (a dressing with a mesh-like appearance), DO NOT remove mesh. Cover site daily with gauze dressing and secure with ELIZABETH wrap. You may shower. The Dermabond dressing can get wet, do not scrub dressing. Pat dry, then place new dressing (above). To avoid constipation while taking any narcotic pain medication, take an over the counter stool softener/laxative. Use your Cryocuff or ice packs as directed, on for 20 minutes at a time throughout the day. This and elevation will help with pain and swelling. Call your physician for fevers above 100.5 or pain not controlled by medication. Your prescriptions are with your discharge information. Some medications were electronically transmitted to your pharmacy of choice. You are on coumadin, Please continue same. Check INR in 2 days, adjust dose as per PCP recommendation.. Prescriptions: Bumetanide 1 mg PO QDAY #30 tab traMADol HCL [Ultram] 25 mg PO Q4HP PRN #30 tab PRN Reason: Pain Other Amb Orders: OT Discharge Order Location: None Selected Physical Therapy at Discharge - TKA Location: None Selected Toilet Riser Discharge Order Location: None Selected Walker Location: None Selected - Problem Maintenance (1) Acute respiratory failure with hypoxia Status: Acute (2) Ileus, postoperative Status: Acute (3) Nausea & vomiting Status: Acute (4) DIANE (obstructive sleep apnea) Status: Acute (5) Atrial fibrillation Status: Chronic Comment: 2008 pacemaker Qualifiers: Atrial fibrillation type: paroxysmal Qualified Code(s): I48.0 - Paroxysmal atrial fibrillation (6) PFO (patent foramen ovale) Status: Acute (7) Hypertension, essential Status: Chronic Comment: 1974 - Follow up Plan Follow up with: Ioana Wynne PA-C [[facility] [employer]] - 03/05/18 1:40 pm Disposition: Xfer SNF Prognosis: Fair Rehab Potential: Fair I certify that the patient requires SNF services: Yes Overall status at discharge: patient is progressing back to baseline Medical - DS: Qual - VTE Deep Vein Thrombosis/Pulmonary Embolism Present on Admission: No
== END 2018-02-24 10:06 | DRG 469 ==
LOC: MEDSUR 02-18 08:10
PROVIDERS: ADMIT Orthopaedic Surgery Sports Medicine; ATTEND Orthopaedic Surgery Sports Medicine